=== PATIENT | male | born 1960 | race American Indian/Alaskan Native ===

== ENCOUNTER 2021-12-15 07:58 | Outpatient (CLI) | payer OTHER ==
--- NOTE | 2021-12-15 09:14 | Cat Scan Report ---
CT CHEST WITHOUT CONTRAST INDICATION / CLINICAL INFORMATION: Z87.891 F17.21 Z12.2. TECHNIQUE: Axial CT images were obtained through the chest without contrast. All CT scans at this [facility] ation are performed using CT dose reduction for ALARA by means of automated exposure control. COMPARISON: None available. FINDINGS: HEART: Borderline heart size. No pericardial effusion. CORONARY ARTERY CALCIFICATION: Present -- Severe. THORACIC AORTA: No significant abnormality. MEDIASTINUM / ADIN: No significant abnormality. PLEURA: No pleural effusion. No pneumothorax. LUNGS: There is mild interstitial reticular prominence in both lower lobes. The upper lung zones are only minimally involved. There are also minimal emphysematous changes in the upper lung zones. No jimmy dence for fibrosis, acute infiltrate or suspicious nodule. Calcified granuloma measuring 5 mm in the left upper lobe is noted. ADDITIONAL FINDINGS: None. UPPER ABDOMEN: No significant abnormality. SKELETAL SYSTEM: No significant abnormality. IMPRESSION: No acute cardiopulmonary process. Borderline heart size with severe coronary artery calcifications. Mild interstitial findings as described. The pattern is nonspecific. Continued follow-up is recommend ed. Signer Name: Ck Schilling Jr, MD Signed: 12/15/2021 9:09 AM Workstation Name: [id number]
== END 2021-12-15 07:59 | disposition home or self-care (01) ==
LOC: CT 07:58
PROVIDERS: ATTEND Family Medicine
DX: J84.10 Pulmonary fibrosis, unspecified (principal); I25.10 Atherosclerotic heart disease of native coronary artery without angina pectoris; Z87.891 Personal history of nicotine dependence
CPT/HCPCS: 71250